=== PATIENT | female | born 1975 | race African-American/Black ===

== ENCOUNTER 2018-08-25 18:40 | Emergency (ER) | payer SELFPAY ==
[~2018-08-25] VITALS: Ht 152.4 cm; Wt 69.0 kg
[2018-08-25] MEDS ORDERED: DOXYCYCLINE HYCLATE 100MG CAPSULE PO ONE (19:30)
[2018-08-25] MEDS ORDERED: IBUPROFEN 600MG TABLET PO ONE (19:30)
[2018-08-25] MEDS ORDERED: LIDOCAINE HCL/PF 1% 10 MG/ML 5ML VIAL IJ ONE (19:45)
[2018-08-25] MEDS ORDERED: BACITRACIN ZINC OINT UDPKT TOP ONE (19:45)
[2018-08-25] MEDS ORDERED: TETANUS, DIPHTHERIA, PERTUSSIS VAC/PF 0.5ML (>7YR OLD) IM ONE (19:45)
[2018-08-25 20:35] VITALS: BP 141/82
== END 2018-08-25 20:36 | disposition home or self-care (01) ==
LOC: ER 18:40
DX: L02.511 Cutaneous abscess of right hand (principal); I10 Essential (primary) hypertension; Z23 Encounter for immunization
CPT/HCPCS: 10060; 73130; 81025; 90471; 90715; 99284; J3490; Z7610

== ENCOUNTER 2020-10-04 09:23 | Emergency (ER) | payer MEDICAID ==
[~2020-10-04] VITALS: Ht 157.5 cm; Wt 77.7 kg
[2020-10-04 09:25] VITALS: BP 177/91
== END 2020-10-04 10:28 | disposition home or self-care (01) ==
LOC: ER 09:23
DX: I10 Essential (primary) hypertension (principal); Z11.1 Encounter for screening for respiratory tuberculosis; Z98.890 Other specified postprocedural states
CPT/HCPCS: 71045; 99283